=== PATIENT | male | born 1970 | race African-American/Black ===

== ENCOUNTER 2017-10-09 08:15 | Emergency (ER) | payer MEDICAID ==
[~2017-10-09] VITALS: Ht 182.9 cm; Wt 128.0 kg
[2017-10-09 11:05] VITALS: BP 151/92
== END 2017-10-09 11:45 | disposition home or self-care (01) ==
LOC: ER 08:38
DX: S93.401A Sprain of unspecified ligament of right ankle, initial encounter (principal); I10 Essential (primary) hypertension; J44.9 Chronic obstructive pulmonary disease, unspecified; Z96.649 Presence of unspecified artificial hip joint; W01.0XXA Fall on same level from slipping, tripping and stumbling without subsequent striking against object, initial encounter; Y93.89 Activity, other specified; Y92.480 Sidewalk as the place of occurrence of the external cause; Y99.8 Other external cause status
CPT/HCPCS: 73610; 99284